=== PATIENT | female | born 1945 | race Caucasian/White ===

== ENCOUNTER 2022-02-19 11:11 | Emergency (ER) | payer MEDICARE, MEDICAID ==
[~2022-02-19] VITALS: Ht 162.6 cm; Wt 105.0 kg
[~2022-02-19 11:11] MED LIST: HYDR-4069 PO; IBUP-2070 PO; INDO-16 PO
[2022-02-19 13:03] LABS: BASOPHILS % (AUTO) 0.6 % (0.0-2.0); EOSINOPHILS % (AUTO) 8.3 % (1.0-6.0); HEMATOCRIT 39.9 % (36-46); HEMOGLOBIN 13.2 g/dL (12.0-16.0); LYMPHOCYTES # (AUTO) 1.1 K/uL (1.0-4.8); LYMPHOCYTES % (AUTO) 25.4 % (22.0-44.0); MEAN CORPUSCULAR HEMOGLOBIN 30.7 pg (26.0-34.0); MEAN CORPUSCULAR HGB CONC 33.1 G/dL (31.0-37.0); MEAN CORPUSCULAR VOLUME 93 fL (80-100); MONOCYTES # (AUTO) 0.4 K/uL (0.1-1.0); MONOCYTES % (AUTO) 7.8 % (2.0-9.0); NEUTROPHILS # (AUTO) 2.6 K/uL (1.8-7.7); NEUTROPHILS % (AUTO) 57.9 % (40.0-70.0); PLATELET COUNT (AUTO) 241 K/uL (150-450); RED CELL DISTRIBUTION WIDTH 13.4 % (11.5-14.5)
[2022-02-19 13:11] LABS: CALCIUM, TOTAL 10.4 mg/dL (8.8-10.5); CARBON DIOXIDE 30 mmol/L (22-29); CHLORIDE 107 mmol/L (98-107); CREATININE 0.83 mg/dL (0.60-1.30); GLUCOSE,RANDOM 111 mg/dL (70-110); UREA NITROGEN, BLOOD 10 mg/dL (7-18)
[2022-02-19 13:19] LABS: ALANINE AMINOTRANSFERASE 24 U/L (12-78); ALKALINE PHOSPHATASE 109 U/L (46-116); ASPARTATE AMINOTRANSFERASE 17 U/L (15-37); BILIRUBIN,TOTAL 0.8 mg/dL (0.1-1.0); TOTAL PROTEIN, SERUM 6.9 g/dL (6.4-8.2)
[2022-02-19 13:24] LABS: ANION GAP 5 mmol/L (8-16); SODIUM SERUM 142 mmol/L (136-145)
[2022-02-19 13:28] LABS: GLOMERULAR FILTR. RATE CALC > 60 mL/min (>60); POTASSIUM 2.8 mmol/L (3.5-5.1)
[2022-02-19] MEDS ORDERED: POTASSIUM CHLORIDE 20 MEQ ER TABLET PO ONE (14:00)
[2022-02-19] MEDS ORDERED: POTASSIUM CHL 10 MEQ/WATER 50 ML IV ONE (14:00)
[2022-02-19 14:17] LABS: THYROID STIMULATING HORMONE 2.16 uIU/mL (0.36-3.74)
[2022-02-19 18:04] LABS: COVID AG,FIA SOURCE NASAL SWAB
[2022-02-19 18:08] LABS: APPEARANCE,URINE CLEAR (CLEAR); BILIRUBIN,URINE NEGATIVE (NEGATIVE); GLUCOSE, URINE (UA) NEGATIVE (NEGATIVE); KETONES,URINE NEGATIVE (NEGATIVE); LEUKOCYTE ESTERASE ,URINE NEGATIVE (NEGATIVE); NITRATE,URINE NEGATIVE (NEGATIVE); OCCULT BLOOD,URINE NEGATIVE (NEGATIVE); PROTEIN,URINE NEGATIVE (NEGATIVE); UROBILINOGEN,URINE <=1.0 mg/dL (<=1.0)
[2022-02-19] MEDS ORDERED: SODIUM CHLORIDE 0.9% 500 ML IV ONE (19:27)
[2022-02-19] MEDS ORDERED: DiphenhydrAMINE HCL 50 MG/ML VIAL IVP ONE (19:30)
[2022-02-19] MEDS ORDERED: EPINEPHrine 1:1,000 [1 MG/ML] VIAL ONE (19:30)
[2022-02-19] MEDS ORDERED: MethylPREDNISolone SOD SUCC 125 MG/2 ML VIAL ONE (19:30)
[2022-02-19] MEDS ORDERED: FAMOTIDINE 10 MG/ML 2 ML VIAL IVP ONE (19:30)
[2022-02-19] MEDS ORDERED: EPINEPHrine 1:1,000 [1 MG/ML] VIAL IM ONE (19:30)
[2022-02-19] MEDS ORDERED: FAMOTIDINE 10 MG/ML 2 ML VIAL ONE (19:30)
[2022-02-19] MEDS ORDERED: MethylPREDNISolone SOD SUCC 125 MG/2 ML VIAL IVP ONE (19:30)
[2022-02-19] MEDS ORDERED: AZITHROMYCIN 500 MG/NS 250 ML IV ONE (20:00)
[2022-02-19] MEDS ORDERED: CefTRIAXone 1 GM/DEXTROSE 50 ML IV ONE (20:00)
[2022-02-19 21:24] VITALS: BP 167/78
== END 2022-02-19 21:53 | disposition short-term general hospital (02) ==
LOC: EMS 11:11
DX: T78.2XXA Anaphylactic shock, unspecified, initial encounter (principal); J18.9 Pneumonia, unspecified organism; E87.6 Hypokalemia; R53.1 Weakness; I10 Essential (primary) hypertension; M19.90 Unspecified osteoarthritis, unspecified site; Z98.890 Other specified postprocedural states; Z20.822 Contact with and (suspected) exposure to COVID-19
CPT/HCPCS: 99291; 96365; 71250; 71045; 96375; 87426; 80053; 81003; 83735; 83880; 84443; 84484; 85025; 87040; 36415; 93005; 96372; J0171; J3490; J2930; J3480; J7040; 51701; 71260